=== PATIENT | female | born 1990 | race Two or more races ===

== ENCOUNTER 2016-08-03 10:36 | Emergency (ER) | payer MEDICAID ==
[~2016-08-03] VITALS: Ht 167.6 cm; Wt 82.0 kg
[2016-08-03 10:38] VITALS: BP 134/85; PULSE 106; RESP 15; TEMP 98.1; O2SAT 98
[2016-08-03 14:55] VITALS: BP 115/73; PULSE 74; RESP 20; O2SAT 100
[2016-08-03] MEDS ORDERED: SODIUM CHLORIDE 0.9% FLUSH 10 ML FLUSH IV FLUSH PRN (15:00)
[2016-08-03 16:12] LABS: AUTOMATED NEUTROPHIL # 5.2 TH/MM3 (1.8-7.7); BASOPHIL % 0.3 % (0.0-2.0); EOSINOPHIL # 0.1 TH/MM3 (0-0.4); EOSINOPHIL % 1.2 % (0.0-4.0); HEMATOCRIT 39.6 % (35.0-46.0); HEMO FLAGS DIFF FINAL; LYMPH % 36.4 % (9.0-44.0); LYMPHOCYTE # 3.3 TH/MM3 (1.0-4.8); MEAN CELL VOLUME 85.3 FL (80.0-100.0); MEAN CORPUSCULAR HGB CONC 35.1 % (32.0-36.0); MONO % 5.8 % (0.0-8.0); NEUT % 56.3 % (16.0-70.0); PLATELET COUNT 240 TH/MM3 (150-450); RED BLOOD COUNT 4.65 MIL/MM3 (4.00-5.30); RED CELL DISTRIBUTION WIDTH 13.4 % (11.6-17.2); WHITE BLOOD COUNT 9.2 TH/MM3 (4.0-11.0)
[2016-08-03 16:25] LABS: ALT (GPT) 48 U/L (10-53); ANION GAP 7 MEQ/L (5-15); AST (GOT) 21 U/L (15-37); BICARBONATE 24.4 MEQ/L (21.0-32.0); BLOOD UREA NITROGEN 9 MG/DL (7-18); CHLORIDE 107 MEQ/L (98-107); GLOMERULAR FILTRATION RATE 131 ML/MIN (>89); POTASSIUM 4.1 MEQ/L (3.5-5.1); SODIUM (NA) 138 MEQ/L (136-145)
[2016-08-03 16:27] LABS: ALKALINE PHOSPHATASE 65 U/L (45-117); TOTAL BILIRUBIN ADULT 0.4 MG/DL (0.2-1.0)
[2016-08-03 16:35] LABS: BACTERIA, URINE MOD /hpf; BLOOD, URINE NEG (NEG); GLUCOSE,URINE NEG (NEG); KETONE, URINE NEG (NEG); MUCUS URINE FEW /lpf (OCC); PH, URINE 6.5 (5.0-8.5); SQUAMOUS EPITHELIAL CELL URINE 2 /hpf (0-5); URINE COLOR YELLOW (YELLW/STRAW)
[2016-08-03 16:37] LABS: COMMENT (UR) CULTURE INDICATED; CULTURE IF INDICATED CULTURE INDICATED; NITRITE,URINE POS (NEG)
[2016-08-03 17:06] VITALS: O2SAT 98
--- NOTE | 2016-08-03 17:09 | PD ---
Physical Exam Narrative Received sign out to follow up with CTa/p 26yo F with right sided abdominal pain. +Nausea. Denies any fever, vomiting, dysuria. Pt is well appearing and has mild ttp RLQ and RUQ. No rebound tenderness or guarding. Labs reviewed, no leukocytosis. CMP unremarkable. Normal LFTs. UA showed positive nitrite. Moderate leukocyte and moderate bacteria. Urine negative. Pt given toradol for pain and states pain has resolved. Pt reevaluated at bedside. Abdomen is soft, NT/ND. No rebound tenderness or guarding. Pt is tolerating PO. Will give ceftriaxone 250mg IM and azithromycin 1000mg PO. Will also discharge with prescription for macrobid to cover UTI. CT showed porcelain gallbladder and recommended 3 months [address] up with CT which was explained to pt using quality control microbiology supervisor. Pt has no RUQ pain on exam currently. LFTs normal. Return precautions given. Data Data Last Documented VS Vital Signs Date Time Temp Pulse Resp B/P Pulse Ox O2 Delivery O2 Flow Rate FiO2 08/03/16 19:24 18 08/03/16 19:23 77 106/57 100 Room Air 08/03/16 10:38 98.1 Orders Complete Blood Count With Diff (08/03/16 14:57) Comprehensive Metabolic Panel (08/03/16 14:57) Lipase (08/03/16 14:57) Urinalysis - C+S If Indicated (08/03/16 14:57) Iv Access Insert/Monitor (08/03/16 14:57) Ecg Monitoring (08/03/16 14:57) Oximetry (08/03/16 14:57) Sodium Chloride 0.9% Flush (Ns Flush) (08/03/16 15:00) Ed Urine Pregnancytest Poc (08/03/16 14:57) Ct Abd/Pel W Iv Contrast(Rout) (08/03/16 ) Wet Prep Profile (08/03/16 16:10) Gc And Chlamydia Pcr (08/03/16 16:10) Urine Culture (08/03/16 16:24) Ketorolac Inj (Toradol Inj) (08/03/16 17:15) Iohexol 350 Inj (Omnipaque 350 Inj) (08/03/16 17:27) Azithromycin Powd Pack (Zithromax Powd P (08/03/16 19:45) Rocephin 250mg Vial Im X 1 (08/03/16 19:45) Lidocaine 1% Inj (50 Ml) (Xylocaine 1% I (08/03/16 19:45) Labs Laboratory Tests Test 08/03/16 08/03/16 08/03/16 15:48 16:24 16:33 White Blood Count 9.2 TH/MM3 Red Blood Count 4.65 MIL/MM3 Hemoglobin 13.9 GM/DL Hematocrit 39.6 % Mean Corpuscular Volume 85.3 FL Mean Corpuscular Hemoglobin 30.0 PG Mean Corpuscular Hemoglobin 35.1 % Concent Red Cell Distribution Width 13.4 % Platelet Count 240 TH/MM3 Mean Platelet Volume 8.1 FL Neutrophils (%) (Auto) 56.3 % Lymphocytes (%) (Auto) 36.4 % Monocytes (%) (Auto) 5.8 % Eosinophils (%) (Auto) 1.2 % Basophils (%) (Auto) 0.3 % Neutrophils # (Auto) 5.2 TH/MM3 Lymphocytes # (Auto) 3.3 TH/MM3 Monocytes # (Auto) 0.5 TH/MM3 Eosinophils # (Auto) 0.1 TH/MM3 Basophils # (Auto) 0.0 TH/MM3 CBC Comment DIFF FINAL Differential Comment Sodium Level 138 MEQ/L Potassium Level 4.1 MEQ/L Chloride Level 107 MEQ/L Carbon Dioxide Level 24.4 MEQ/L Anion Gap 7 MEQ/L Blood Urea Nitrogen 9 MG/DL Creatinine 0.56 MG/DL Estimat Glomerular Filtration 131 ML/MIN Rate Random Glucose 88 MG/DL Calcium Level 9.1 MG/DL Total Bilirubin 0.4 MG/DL Aspartate Amino Transf 21 U/L (AST/SGOT) Alanine Aminotransferase 48 U/L (ALT/SGPT) Alkaline Phosphatase 65 U/L Total Protein 8.2 GM/DL Albumin 3.9 GM/DL Lipase 187 U/L Urine Color YELLOW Urine Turbidity HAZY Urine pH 6.5 Urine Specific [place] 1.018 Urine Protein NEG mg/dL Urine Glucose (UA) NEG mg/dL Urine Ketones NEG mg/dL Urine Occult Blood NEG Urine Nitrite POS Urine Bilirubin NEG Urine Urobilinogen LESS THAN 2.0 MG/DL Urine Leukocyte Esterase MOD Urine RBC 1 /hpf Urine WBC 10 /hpf Urine Squamous Epithelial 2 /hpf Cells Urine Bacteria MOD /hpf Urine Mucus FEW /lpf Microscopic Urinalysis Comment CULTURE INDICATED Clue Cells (Wet Prep) NONE SEEN Vaginal Trichomonas (Wet Prep) NONE SEEN Vaginal Yeast (Wet Prep) NONE SEEN MDM Supervised Visit with ADITHYA: No Diagnosis Primary Impression: UTI (urinary tract infection) Qualified Code: N39.0 - Urinary tract infection without hematuria, site unspecified Patient Instructions: General Instructions Departure Forms: Tests/Procedures, Work Release Enter return to work date: Aug 04, 2016 Additional Instruction: Please follow up with your PMD in 3-7 days. CTa/p showed porcelain gallbladder and recommend a follow up CT in 3 months. Return to the ED if symptoms worsen. Med/Other Pt SpecificInfo: Prescription(s) given Scripts Nitrofurantoin Monohydrate Macrocrystals (Macrobid)100 Mg [id number] Mg PO BID 7 Days Ref 0 Prov:Elyssa Schafer DO 08/03/16 Acetaminophen (Acetaminophen Extra Strength)500 Mg [id number] Mg PO Q6H PRN (PAIN SCALE 1 TO 5) #20 TAB Ref 0 Prov:Elyssa Schafer DO 08/03/16 Disposition: 01 DISCHARGE HOME Condition: Stable Elyssa Schafer DO Aug 03, 2016 17:09
[2016-08-03] MEDS ORDERED: KETOROLAC TROMETHAMINE 30 MG/ML (IVP) VIAL IV PUSH ONE (17:15)
[2016-08-03] MEDS ORDERED: IOHEXOL 350 MG/ML 10 ML VIAL (for RAD DIAG) IV ONE (17:27)
--- NOTE | 2016-08-03 17:39 | PD ---
HPI Chief Complaint: Abdominal Pain Time Seen by Provider: 17:05 Travel History International Travel<30 days: No Contact w/Intl Traveler<30days: No Traveled to known affect area: No History of Present Illness HPI This is a 26-year-old female who presents to the emergency department with right sided abdominal pain that's been present for 3 days, constant, moderate severity, associated with nausea. Patient denies any fevers or chills. She denies any dysuria or hematuria. She has had some whitish pinkish vaginal discharge. She's had one sexual partner in the past 6 years. She's had a BTL in the past so she doesn't think she is . She says this feels very similar to when she had appendicitis when she was and at that time decided not to take her appendix out. PFSH Past Medical History Medical History: Denies Significant Hx Tetanus Vaccination: > 5 Years Influenza Vaccination: No ?: Not LMP: 07/08/2016 : 4 Para: 3 : 1 Tubal Ligation: Yes Social History Alcohol Use: Yes (occ) Tobacco Use: Yes (2ppd) Substance Use: No Allergies-Medications (Allergen,Severity, Reaction): Coded Allergies: No Known Allergies (Unverified , 08/03/16) Review of Systems Except as stated in HPI: all other systems reviewed are Neg Physical Exam Narrative GENERAL:Well appearing, no acute distress SKIN: Warm and dry. HEAD: Atraumatic. Normocephalic. EYES: Pupils equal and round. No injection or drainage. ENT: Moist mucous membranes NECK: Trachea midline. CARDIOVASCULAR: Regular rate and rhythm. No murmur appreciated. RESPIRATORY: Clear to auscultation. Breath sounds equal bilaterally. GASTROINTESTINAL: Abdomen soft tender to palpation in the right lower quadrant with no rebound or guarding. CASTING TECHNICIAN: Greenish frothy discharge in the vault with no cervical motion tenderness or adnexal tenderness. MUSCULOSKELETAL: No obvious deformities. NEUROLOGICAL: Awake and alert. No obvious cranial nerve deficits. Moving all extremities. PSYCHIATRIC: Appropriate mood and affect; insight and judgment normal. Data Data Last Documented VS Vital Signs Date Time Temp Pulse Resp B/P Pulse Ox O2 Delivery O2 Flow Rate FiO2 08/03/16 17:06 98 Room Air 08/03/16 14:55 74 20 115/73 08/03/16 10:38 98.1 Orders Complete Blood Count With Diff (08/03/16 14:57) Comprehensive Metabolic Panel (08/03/16 14:57) Lipase (08/03/16 14:57) Urinalysis - C+S If Indicated (08/03/16 14:57) Iv Access Insert/Monitor (08/03/16 14:57) Ecg Monitoring (08/03/16 14:57) Oximetry (08/03/16 14:57) Sodium Chloride 0.9% Flush (Ns Flush) (08/03/16 15:00) Ed Urine Pregnancytest Poc (08/03/16 14:57) Ct Abd/Pel W Iv Contrast(Rout) (08/03/16 ) Wet Prep Profile (08/03/16 16:10) Gc And Chlamydia Pcr (08/03/16 16:10) Urine Culture (08/03/16 16:24) Ketorolac Inj (Toradol Inj) (08/03/16 17:15) Iohexol 350 Inj (Omnipaque 350 Inj) (08/03/16 17:27) Labs Laboratory Tests Test 08/03/16 08/03/16 08/03/16 15:48 16:24 16:33 White Blood Count 9.2 TH/MM3 Red Blood Count 4.65 MIL/MM3 Hemoglobin 13.9 GM/DL Hematocrit 39.6 % Mean Corpuscular Volume 85.3 FL Mean Corpuscular Hemoglobin 30.0 PG Mean Corpuscular Hemoglobin 35.1 % Concent Red Cell Distribution Width 13.4 % Platelet Count 240 TH/MM3 Mean Platelet Volume 8.1 FL Neutrophils (%) (Auto) 56.3 % Lymphocytes (%) (Auto) 36.4 % Monocytes (%) (Auto) 5.8 % Eosinophils (%) (Auto) 1.2 % Basophils (%) (Auto) 0.3 % Neutrophils # (Auto) 5.2 TH/MM3 Lymphocytes # (Auto) 3.3 TH/MM3 Monocytes # (Auto) 0.5 TH/MM3 Eosinophils # (Auto) 0.1 TH/MM3 Basophils # (Auto) 0.0 TH/MM3 CBC Comment DIFF FINAL Differential Comment Sodium Level 138 MEQ/L Potassium Level 4.1 MEQ/L Chloride Level 107 MEQ/L Carbon Dioxide Level 24.4 MEQ/L Anion Gap 7 MEQ/L Blood Urea Nitrogen 9 MG/DL Creatinine 0.56 MG/DL Estimat Glomerular Filtration 131 ML/MIN Rate Random Glucose 88 MG/DL Calcium Level 9.1 MG/DL Total Bilirubin 0.4 MG/DL Aspartate Amino Transf 21 U/L (AST/SGOT) Alanine Aminotransferase 48 U/L (ALT/SGPT) Alkaline Phosphatase 65 U/L Total Protein 8.2 GM/DL Albumin 3.9 GM/DL Lipase 187 U/L Urine Color YELLOW Urine Turbidity HAZY Urine pH 6.5 Urine Specific [place] 1.018 Urine Protein NEG mg/dL Urine Glucose (UA) NEG mg/dL Urine Ketones NEG mg/dL Urine Occult Blood NEG Urine Nitrite POS Urine Bilirubin NEG Urine Urobilinogen LESS THAN 2.0 MG/DL Urine Leukocyte Esterase MOD Urine RBC 1 /hpf Urine WBC 10 /hpf Urine Squamous Epithelial 2 /hpf Cells Urine Bacteria MOD /hpf Urine Mucus FEW /lpf Microscopic Urinalysis Comment CULTURE INDICATED Clue Cells (Wet Prep) NONE SEEN Vaginal Trichomonas (Wet Prep) NONE SEEN Vaginal Yeast (Wet Prep) NONE SEEN MDM Medical Decision Making Medical Screen Exam Complete: Yes Emergency Medical Condition: Yes Interpretation(s) Afebrile, tachycardia, normotensive No leukocytosis Electrolytes are reassuring Lipase is normal Urinalysis: Some white blood cells Differential Diagnosis Appendicitis, pelvic inflammatory disease, urinary tract infection, ovarian cyst , , ectopic Narrative Course This is a 26 her old female who presents to the emergency department with right lower quadrant abdominal pain. She says it feels similar to when she's had appendicitis in the past. She is placed in a monitor and an IV was established. Labs are obtained which were reassuring. Pelvic exam demonstrates an abnormal discharge but no pain to suggest PID. CT will be obtained and will be signed out to Dr. Schafer. If normal patient should be treated for urinary tract infection and cervicitis. Michaela Kan MD Aug 03, 2016 17:39
[2016-08-03 17:42] VITALS: BP 104/70; PULSE 72; RESP 20; O2SAT 100
--- NOTE | 2016-08-03 17:57 | RADRPT ---
EXAM DATE/TIME: 08/03/2016 17:17 [facility] COMPARISON: No previous studies available for comparison. INDICATIONS : Right lower abdomen pain today. IV CONTRAST: 95 cc Omnipaque 350 (iohexol) IV ORAL CONTRAST: No oral contrast ingested. RADIATION DOSE: 9.96 CTDIvol (mGy) MEDICAL HISTORY : None SURGICAL HISTORY : Tubal ligation. ENCOUNTER: Initial ACUITY: 1 day PAIN SCALE: 6/10 LOCATION: Right lower quadrant TECHNIQUE: Volumetric scanning of the abdomen and pelvis was performed. Using automated exposure control and ad justment of the mA and/or kV according to patient size, radiation dose was kept as low as reasonably achievable to obtain optimal diagnostic quality images. FINDINGS: LOWER LUNGS: The visualized lower lungs are clear. LIVER: Homogeneous density without lesion. There is no dilation of the biliary tree. Calcification of the g allbladder wall characteristic of a "porcelain gallbladder". SPLEEN: Normal size without lesion. PANCREAS: Within normal limits. KIDNEYS: Normal in size and shape. There is no mass, stone or hydronephrosis. Punctate, 3 mm probable cyst in the inferior cortex of the right kidney. ADRENAL GLANDS: Within normal limits. VASCULAR: There is no aortic aneurysm. BOWEL/MESENTERY: The stomach, small bowel, and colon demonstrate no acute abnormality. There is no free intraperitone al air or fluid. The vermiform appendix is identified and is ready graphically normal. ABDOMINAL WALL: Within normal limits. RETROPERITONEUM: There is no lymphadenopathy. BLADDER: No wall thickening or mass. REPRODUCTIVE: 2 cm ovarian cyst on the right. Otherwise negative. INGUINAL: There is no lymphadenopathy or hernia. MUSCULOSKELETAL: Within normal limits for patient age. CONCLUSION: 1. 2 cm right ovarian cyst. 2. I do not see an acute intraperitoneal or pelvic process to explain patient's current clinical symp toms. The appendix is identified and is radiographically normal. 3. Rim calcification of the gallbladder characteristic of a "porcelain gallbladder". Both benign an d malignant etiologies can be associated with this finding. I would recommend a short interval, [address] scan of the abdomen without contrast to ensure stability. Orion Woodard MD on August 03, 2016 at 17:49 Board Certified Radiologist. This report was verified electronically.
[2016-08-03 19:23] VITALS: BP 106/57; PULSE 77; RESP 18; O2SAT 100
[2016-08-03] MEDS ORDERED: ACET500T36 PO (19:42)
[2016-08-03] MEDS ORDERED: MACR100C2 PO (19:44)
[2016-08-03] MEDS ORDERED: LIDOCAINE HCL 1% 50 ML VIAL IM ONE (19:45)
[2016-08-03] MEDS ORDERED: cefTRIAXone 250 MG VIAL IM ONE (19:45)
[2016-08-03] MEDS ORDERED: AZITHROMYCIN PWD FOR SUSP 1 GM PACKET PO ONE (19:45)
[2016-08-03 19:52] LABS: CHLAMYDIA PCR NOT DETECTED (NOT DETECT); NEISSERIA PCR NOT DETECTED (NOT DETECT)
== END 2016-08-03 20:19 | disposition home or self-care (01) ==
LOC: NEPA 10:36
DX: N39.0 Urinary tract infection, site not specified (principal); B96.20 Unspecified Escherichia coli [E. coli] as the cause of diseases classified elsewhere; R11.0 Nausea; N89.8 Other specified noninflammatory disorders of vagina; F17.210 Nicotine dependence, cigarettes, uncomplicated
CPT/HCPCS: 74177; 80053; 81001; 83690; 84703; 85025; 87077; 87086; 87186; 87210; 87491; 87591; 96372; 96374; 99284; J0696; J1885; Q9967

== ENCOUNTER 2016-11-05 15:19 | Emergency (ER) | payer MEDICAID ==
[~2016-11-05] VITALS: Ht 165.1 cm; Wt 85.0 kg
[~2016-11-05 15:19] MED LIST: ACET500T36 PO; MACR100C2 PO
[2016-11-05 15:20] VITALS: BP 142/81; PULSE 103; RESP 22; TEMP 98.1; O2SAT 99
[2016-11-05] MEDS ORDERED: SODIUM CHLOR 0.9% 1000 ML INJ 1,000 ML IV SCH (15:47)
[2016-11-05] MEDS ORDERED: IBUPROFEN 800 MG TAB PO ONE (16:00)
--- NOTE | 2016-11-05 16:16 | RADRPT ---
EXAM DATE/TIME: 11/05/2016 15:49 [facility] COMPARISON: No previous studies available for comparison. INDICATIONS : Cough. MEDICAL HISTORY : None. SURGICAL HISTORY : None. ENCOUNTER: Initial ACUITY: 1 day PAIN SCORE: 0/10 LOCATION: Bilateral chest FINDINGS: A single view of the chest demonstrates the lungs to be symmetrically aerated without evidence of mas s, infiltrate or effusion. The cardiomediastinal contours are unremarkable. Osseous structures are intact. CONCLUSION: Normal examination. Ran King MD on November 05, 2016 at 16:13 Board Certified Radiologist. This report was verified electronically.
[2016-11-05 16:26] LABS: AUTOMATED NEUTROPHIL # 4.8 TH/MM3 (1.8-7.7); BASOPHIL % 0.5 % (0.0-2.0); EOSINOPHIL # 0.1 TH/MM3 (0-0.4); EOSINOPHIL % 1.6 % (0.0-4.0); HEMATOCRIT 40.1 % (35.0-46.0); HEMO FLAGS DIFF FINAL; LYMPH % 38.9 % (9.0-44.0); LYMPHOCYTE # 3.4 TH/MM3 (1.0-4.8); MEAN CELL VOLUME 85.9 FL (80.0-100.0); MEAN CORPUSCULAR HEMOGLOBIN 28.9 PG (27.0-34.0); MEAN CORPUSCULAR HGB CONC 33.6 % (32.0-36.0); PLATELET COUNT 278 TH/MM3 (150-450); RED BLOOD COUNT 4.66 MIL/MM3 (4.00-5.30); RED CELL DISTRIBUTION WIDTH 13.9 % (11.6-17.2); WHITE BLOOD COUNT 8.8 TH/MM3 (4.0-11.0)
--- NOTE | 2016-11-05 16:29 | PD ---
HPI Chief Complaint: Chest Pain Time Seen by Provider: 16:26 Travel History International Travel<30 days: No Contact w/Intl Traveler<30days: No Traveled to known affect area: No History of Present Illness HPI 26-year-old female that presents to the ED for evaluation of chest pain and headache. Per patient she's had congestion as well as cough that is productive for the past 3 days. She states the chest pain is worse with deep breaths as well as with touch. Also with movement. Denies any injury. Denies any recent travel. Denies any cardiac disease. Denies any syncope. Per patient the pain feels like a pressure on the chest and on the sinuses. Per patient the pain is more severe in the chest. No history of asthma but she does smoke. She denies any possibility of . No allergies to medication. She is taking OTC meds with minimal relief. Pain per patient is 6 out of 10. Denies any radiation of the pain. Patient does tell me that she has sick contacts at home. PFSH Past Medical History ?: Unknown : 4 Para: 3 : 1 Tubal Ligation: Yes Social History Alcohol Use: Yes (occ) Tobacco Use: Yes (2ppd) Substance Use: No Allergies-Medications (Allergen,Severity, Reaction): Coded Allergies: No Known Allergies (Unverified , 08/03/16) Reported Meds & Prescriptions Reported Meds & Active Scripts Active Macrobid (Nitrofurantoin Monoh/Nitrofur Macro) 100 Mg Cap 100 Mg PO BID 7 Days Acetaminophen Extra Strength (Acetaminophen) 500 Mg Tab 500 Mg PO Q6H PRN Review of Systems Except as stated in HPI: all other systems reviewed are Neg Physical Exam Narrative GENERAL: Well-nourished, well-developed patient in no apparent distress. SKIN: Warm and dry. HEAD: Atraumatic. Normocephalic. EYES: Pupils equal and round reactive to light and accommodation. No scleral icterus. No injection or drainage. ENT: No nasal bleeding or discharge. Mucous membranes pink and moist. TMs are clear with no sign of infection or perforation. No mastoid tenderness. Ear canals are intact bilaterally. No lymphadenopathy. Nostril mucosa is red and moist with clear mucus noted. No sinus tenderness to palpation noted. Tonsils are not enlarged or swollen. No ulvua Deviation. Tongue is midline. NECK: Trachea midline. No JVD. No meningeal signs noted CARDIOVASCULAR: Regular rate and rhythm. RESPIRATORY: No accessory muscle use. Clear to auscultation. Breath sounds equal bilaterally. GASTROINTESTINAL: Abdomen soft, non-tender, nondistended. Hepatic and splenic margins not palpable. MUSCULOSKELETAL: Extremities without clubbing, cyanosis, or edema. No obvious deformities. Full range of motion of the upper and lower extremities bilaterally. 2+ pulses bilaterally. NEUROLOGICAL: Awake and alert. No obvious cranial nerve deficits. Motor grossly within normal limits. Five out of 5 muscle strength in the arms and legs. Normal speech. PSYCHIATRIC: Appropriate mood and affect; insight and judgment normal. Data Data Last Documented VS Vital Signs Date Time Temp Pulse Resp B/P Pulse Ox O2 Delivery O2 Flow Rate FiO2 11/05/16 15:59 89 18 98 Room Air 11/05/16 15:20 98.1 142/81 Orders Complete Blood Count With Diff (11/05/16 15:47) Basic Metabolic Panel (Bmp) (11/05/16 15:47) Influenzae A/B Antigen (11/05/16 15:47) Chest, Single Ap (11/05/16 15:47) Iv Access Insert/Monitor (11/05/16 15:47) Sodium Chlor 0.9% 1000 Ml Inj (Ns 1000 M (11/05/16 15:47) Ed Urine Pregnancytest Poc (11/05/16 15:47) Ibuprofen (Motrin) (11/05/16 16:00) Labs Laboratory Tests Test 11/05/16 15:53 White Blood Count 8.8 TH/MM3 Red Blood Count 4.66 MIL/MM3 Hemoglobin 13.5 GM/DL Hematocrit 40.1 % Mean Corpuscular Volume 85.9 FL Mean Corpuscular Hemoglobin 28.9 PG Mean Corpuscular Hemoglobin 33.6 % Concent Red Cell Distribution Width 13.9 % Platelet Count 278 TH/MM3 Mean Platelet Volume 8.6 FL Neutrophils (%) (Auto) 54.0 % Lymphocytes (%) (Auto) 38.9 % Monocytes (%) (Auto) 5.0 % Eosinophils (%) (Auto) 1.6 % Basophils (%) (Auto) 0.5 % Neutrophils # (Auto) 4.8 TH/MM3 Lymphocytes # (Auto) 3.4 TH/MM3 Monocytes # (Auto) 0.4 TH/MM3 Eosinophils # (Auto) 0.1 TH/MM3 Basophils # (Auto) 0.0 TH/MM3 CBC Comment DIFF FINAL Differential Comment Sodium Level 139 MEQ/L Potassium Level 3.8 MEQ/L Chloride Level 107 MEQ/L Carbon Dioxide Level 24.0 MEQ/L Anion Gap 8 MEQ/L Blood Urea Nitrogen 11 MG/DL Creatinine 0.66 MG/DL Estimat Glomerular Filtration 108 ML/MIN Rate Random Glucose 87 MG/DL Calcium Level 8.9 MG/DL [facility] Medical Decision Making Medical Screen Exam Complete: Yes Emergency Medical Condition: Yes Medical Record Reviewed: Yes Interpretation(s) CBC & BMP Diagram 11/05/16 15:53 influenza negative Last Impressions Chest X-Ray 11/05/16 1547 Signed Impressions: Service Date/Time: , November 05, 2016 15:49 - CONCLUSION: Normal examination. Ran King MD EKG shows sinus rhythm with no sign of acute ischemia or arrhythmia rhythm and attending. Differential Diagnosis Sinusitis versus pneumonia versus bronchitis versus costochondritis versus less likely cardiac pain Narrative Course 26-year-old female that presents to the ED for evaluation of headache and chest pain. Patient was properly examined and was found to have signs and symptoms which appear to be more consistent with likely infection. Labs and imaging were ordered. EKG and labs were essentially unremarkable. Chest x-ray nausea pneumonia. Pain is reproducible with touch. I do not believe this is cardiac in nature. Patient likely has a sinusitis and bronchitis. She will be treated for this with amoxicillin, Tessalon Perles, prednisone, diclofenac sodium for pain and told to take OTC meds as needed. Close follow-up with PCP. See ED for worsening symptoms. Diagnosis Primary Impression: Sinusitis, acute Qualified Code: J01.00 - Acute non-recurrent maxillary sinusitis Additional Impression: Bronchitis Patient Instructions: General Instructions Additional Instructions: Motrin and Tylenol for pain and fever. You can use [id number] antihistamine as well as well as Mucinex as needed for runny nose and congestion. Cough drops for cough as needed. Drink plenty of fluids. Follow-up with PCP. See ED for worsening symptoms. Med/Other Pt SpecificInfo: Prescription(s) given Disposition: DISCHARGE HOME Condition: Stable Lexa Crocker Nov 05, 2016 16:28
[2016-11-05 16:47] LABS: POTASSIUM 3.8 MEQ/L (3.5-5.1)
[2016-11-05] MEDS ORDERED: BENZ100 PO (16:53)
[2016-11-05] MEDS ORDERED: PRED20 PO (16:53)
[2016-11-05] MEDS ORDERED: AMOX875T PO (16:53)
[2016-11-05] MEDS ORDERED: DICL75TA PO (16:53)
--- NOTE | 2016-11-05 19:59 | EKG ---
Date Performed: 11/05/2016 Time Performed: 15:40:54 PTAGE: 26 years EKG: Sinus rhythm NORMAL ECG NO PREVIOUS TRACING DOCTOR: Robert Gomez Interpretating Date/Time 11/05/2016 19:57:58
== END 2016-11-05 17:37 | disposition home or self-care (01) ==
LOC: NEPC 15:19
DX: J01.90 Acute sinusitis, unspecified (principal); J40 Bronchitis, not specified as acute or chronic; R51 Headache; F17.200 Nicotine dependence, unspecified, uncomplicated; Z79.899 Other long term (current) drug therapy
CPT/HCPCS: 71010; 80048; 84703; 85025; 87804; 93005; 99285